=== PATIENT | male | born 1965 | race Caucasian/White ===

== ENCOUNTER 2021-05-02 12:12 | Emergency (ER) | payer BC ==
[~2021-05-02] VITALS: Ht 170.2 cm; Wt 95.3 kg
[2021-05-02 12:31] LABS: ABSOLUTE BASOPHILS 0.1 thou/uL (0.0-0.2); ABSOLUTE EOSINOPHILS 0.1 thou/uL (0.0-0.7); ABSOLUTE LYMPHOCYTES 1.8 thou/uL (0.8-5.3); ABSOLUTE MONOCYTES 0.5 thou/uL (0.0-1.2); ABSOLUTE NEUTROPHILS 3.3 thou/uL (1.6-8.1); EOSINOPHILS 2.2 %; HEMATOCRIT 42.4 % (42.0-52.0); HEMOGLOBIN 14.8 gm/dL (14.0-18.0); LYMPHOCYTES 31.3 %; MCH 30.5 pg (26.0-34.0); MCHC 34.9 g/dL (28.0-37.0); MCV 87.5 fL (80.0-100.0); MONOCYTES 8.7 %; MPV 7.5 fl. (7.2-11.1); NUCLEATED RBCS 0 /100WBC; PLATELET COUNT* 186 thou/uL (150-400); POLYS 56.8 %; RBC 4.85 mil/uL (4.50-6.00); RDW-CV 13.2 % (10.5-14.5); WBC 5.8 thou/uL (4.0-11.0)
--- NOTE | 2021-05-02 12:37 | EKG ---
[place] [address] ELECTROCARDIOGRAM REPORT Name: GEORGEGEOVANI [id number] Admission: Attend Phys: Discharge: Date of : 63 Date of Service: 05/02/21 1214 Report #: [id number] THIS REPORT FOR: //name// [facility] Test Date: 2021-05-02 Test Time: 12:14:48 Pat Name: GEOVANI VAZQUEZ Department: Room: Gender: Second Facing Baster: [facility] : 1965 Requested By: Poli Blanca Order Number: [id number] MD: Rashad Serrano Measurements Intervals [place] Rate: 74 P: 47 MO: 202 QRS: -2 QRSD: 121 T: -8 QT: 392 QTc: 435 Interpretive Statements Sinus rhythm Borderline prolonged MO interval IVCD, consider atypical RBBB No previous ECG available for comparison Electronically Signed On 05-02-2021 12:36:47 CDT by Rashad Serrano [email or web address] <ELECTRONICALLY SIGNED> By: Rashad Serrano MD, [facility] 05/02/21 1236 1214 1214 Rashad Serrano MD, [facility] /EPI
[2021-05-02 12:40] LABS: CALCIUM 8.7 mg/dL (8.5-10.1); POTASSIUM 3.5 mmol/L (3.5-5.1)
[2021-05-02 12:44] LABS: ALBUMIN 3.9 g/dL (3.4-5.0); MAGNESIUM 1.9 mg/dL (1.8-2.4); TOTAL BILIRUBIN 0.6 mg/dL (<0.1-1.0); TOTAL PROTEIN 7.2 g/dL (6.4-8.2)
[2021-05-02 13:09] VITALS: BP 147/82
== END 2021-05-02 13:10 | disposition home or self-care (01) ==
LOC: M.ERS 12:12
PROVIDERS: Family Medicine
DX: R00.2 Palpitations (principal); I10 Essential (primary) hypertension